=== PATIENT | female | born 1955 | race African-American/Black ===

== ENCOUNTER 2022-08-14 13:57 | Inpatient (IN) | payer OTHER ==
[~2022-08-14] VITALS: Ht 167.6 cm; Wt 83.0 kg
[2022-08-14] MEDS ORDERED: SODIUM CHLORIDE 0.9% 1,000 ML IV ONE (14:15)
[2022-08-14 15:25] LABS: BG CARBOXYHEMOGLOBIN 0.7 % (0.5-1.5); BG DEOXYHEMOGLOBIN 6.7 % (0.0-5.0); BG FRACTION INSPIRED OXYGEN 21; BG HCO3 ACT 19.9 mmol/L (22.0-26.0); BG METHEMOGLOBIN 0.3 % (0.0-1.5); BG OXYGEN SATURATION 93.2 % (92.0-98.5); BG OXYHEMOGLOBIN 92.3 % (94.0-97.0); BG PCO2 27.3 mmHg (35.0-45.0); BG PH 7.481 (7.350-7.450); BG PO2 63.3 mmHg (75.0-100.0); BG SAMPLE SITE RIGHT RADIAL; BG TOTAL HEMOGLOBIN 14.7 g/dL (12.0-18.0); BG VENT MODE ROOM AIR
[2022-08-14 16:42] LABS: CHLORIDE 103 mEq/L (98-107); HEMATOCRIT. 41.5 % (36.0-48.0); HEMOGLOBIN. 13.8 g/dL (12.0-16.0); MEAN CORPUSCULAR HEMOGLOBIN 28.7 pg (28.0-32.0); MEAN CORPUSCULAR VOLUME 86.6 fL (81.0-99.0); MEAN PLATELET VOLUME 9.5 fl (7.4-10.4); PLATELET 64 x1000/uL (130-400); RED BLOOD CELL COUNT 4.79 mill/uL (4.2-5.4); RED CELL DISTRIBUTION WIDTH 14.5 % (11.6-14.6)
[2022-08-14 16:46] LABS: INR 1.4; PROTHROMBIN TIME 14.6 sec (9.6-11.0)
[2022-08-14 16:57] LABS: CREATINE KINASE 204 IU/L (26-192); ETHANOL BLOOD < 10 mg/dL (-10)
[2022-08-14 17:24] LABS: PLATELET ESTIMATE DECREASED
[2022-08-14] MEDS ORDERED: IOHEXOL-350 100 ML BOTTLE ONE (21:46)
[2022-08-14] MEDS ORDERED: HEPARIN 25,000 UNITS PREMIX 250 ML IV ONE (22:00)
[2022-08-14] MEDS ORDERED: HEPARIN 60 UNITS/KG BOLUS IV SCH (22:00)
[2022-08-14] MEDS ORDERED: HEPARIN 25,000 UNITS PREMIX 250 ML IV SCH (23:15)
[2022-08-15] VITALS (46 sets, daily range): BP systolic 73–201; BP diastolic 34–136
[2022-08-15] MEDS ORDERED: SODIUM CHLORIDE 0.9% 100 ML IV SCH (04:15)
[2022-08-15] MEDS: SODIUM CHLORIDE 0.9% 1,000 ML IV SCH ×2 (04:29→14:08)
[2022-08-15 04:44] LABS: HEMATOCRIT. 39.2 % (36.0-48.0); HEMOGLOBIN. 12.9 g/dL (12.0-16.0); MEAN CORPUSCULAR HEMOGLOBIN 28.8 pg (28.0-32.0); MEAN CORPUSCULAR VOLUME 87.2 fL (81.0-99.0); MEAN PLATELET VOLUME 9.7 fl (7.4-10.4); PLATELET 53 x1000/uL (130-400); RED BLOOD CELL COUNT 4.49 mill/uL (4.2-5.4); RED CELL DISTRIBUTION WIDTH 14.8 % (11.6-14.6)
[2022-08-15 04:50] LABS: CHLORIDE 109 mEq/L (98-107)
[2022-08-15] MEDS ORDERED: HEPARIN BOLUS PRN aPTT 30-44 IV (06:00)
[2022-08-15] MEDS ORDERED: HEPARIN BOLUS PRN aPTT <30 IV (06:00)
[2022-08-15] MEDS ORDERED: NICARDIPINE 40MG/200ML PREMIX 200 ML IV PRN (06:30)
[2022-08-15] MEDS ORDERED: NICARDIPINE 50 MG in SODIUM CHLORIDE 0.9% 250 ML IV PRN (07:00)
[2022-08-15] MEDS ORDERED: IPRATROPIUM/ALBUTEROL 0.5-3(2.5)MG/3ML NEB HHN PRN (08:30)
[2022-08-15] MEDS ORDERED: HEPARIN 25,000 UNITS PREMIX 250 ML IV SCH (08:30)
[2022-08-15] MEDS: PANTOPRAZOLE SODIUM 40 MG/VIAL IV SCH (08:50)
[2022-08-15 10:22] LABS: PLATELET ESTIMATE DECREASED
[2022-08-15] MEDS ORDERED: LORAZEPAM 2MG/ML CPJ IV NR (12:45)
[2022-08-15 19:04] LABS: HEMATOCRIT. 36.1 % (36.0-48.0); MEAN CORPUSCULAR HEMOGLOBIN 28.8 pg (28.0-32.0); MEAN CORPUSCULAR VOLUME 87.1 fL (81.0-99.0); MEAN PLATELET VOLUME 9.3 fl (7.4-10.4); RED BLOOD CELL COUNT 4.15 mill/uL (4.2-5.4); RED CELL DISTRIBUTION WIDTH 14.3 % (11.6-14.6)
[2022-08-15 19:27] LABS: PLATELET 39 x1000/uL (130-400)
[2022-08-15 19:49] LABS: PLATELET ESTIMATE MARKEDLY DECREASED
[2022-08-16] VITALS (41 sets, daily range): BP systolic 93–153; BP diastolic 43–93
[2022-08-16 05:30] LABS: HEMATOCRIT. 34.9 % (36.0-48.0); HEMOGLOBIN. 11.5 g/dL (12.0-16.0); MEAN CORPUSCULAR HEMOGLOBIN 28.8 pg (28.0-32.0); MEAN CORPUSCULAR VOLUME 87.4 fL (81.0-99.0); MEAN PLATELET VOLUME 10.6 fl (7.4-10.4); RED CELL DISTRIBUTION WIDTH 14.8 % (11.6-14.6)
[2022-08-16 05:58] LABS: CHLORIDE 112 mEq/L (98-107)
[2022-08-16] MEDS: PANTOPRAZOLE SODIUM 40 MG/VIAL IV SCH (09:00)
[2022-08-16] MEDS ORDERED: POTASSIUM CHLORIDE INJ 40 MEQ in DEXT 5% WATER 250 ML IV ONE (09:15)
[2022-08-16 09:53] LABS: PLATELET 48 x1000/uL (130-400); PLATELET ESTIMATE MARKEDLY DECREASED
[2022-08-16] MEDS: KCL 20MEQ/100ML X 2 FOR TOTAL KCL 40MEQ/200ML IV SCH ×2 (10:00→11:59)
[2022-08-16] MEDS: SODIUM CHLORIDE 0.9% 1,000 ML IV SCH (11:59)
[2022-08-16] MEDS ORDERED: GADOTERATE MEGLUMINE 5 MMOL/10 ML VIAL IV ONE (18:56)
[2022-08-16] MEDS ORDERED: DEXAMETHASONE 4MG TABLET PO SCH (22:00)
[2022-08-16] MEDS ORDERED: LEVETIRACETAM 500MG PREMIX 100 ML IV SCH (22:00)
== END 2022-08-16 22:11 | disposition short-term general hospital (02) | DRG 70 ==
LOC: ER 13:57 → 5EST 22:01 → EDBEDREQ 22:12 → EDBEDREQSVC 22:12 → ENRESERV 22:33 → MICUNO 08-15 02:00
PROVIDERS: ADMIT Internal Medicine; ATTEND Internal Medicine
PROC: 4A00X4Z Measurement of Central Nervous Electrical Activity, External Approach (ICD-10-PCS; principal; 2022-08-16)
DX: G93.41 Metabolic encephalopathy (principal); G93.6 Cerebral edema; I26.02 Saddle embolus of pulmonary artery with acute cor pulmonale; J96.00 Acute respiratory failure, unspecified whether with hypoxia or hypercapnia; C56.9 Malignant neoplasm of unspecified ovary; C78.00 Secondary malignant neoplasm of unspecified lung; C79.31 Secondary malignant neoplasm of brain; D68.59 Other primary thrombophilia; C78.7 Secondary malignant neoplasm of liver and intrahepatic bile duct; G82.20 Paraplegia, unspecified; C50.911 Malignant neoplasm of unspecified site of right female breast; C53.9 Malignant neoplasm of cervix uteri, unspecified; E66.9 Obesity, unspecified; D69.6 Thrombocytopenia, unspecified; Z20.822 Contact with and (suspected) exposure to COVID-19; Z66 Do not resuscitate; E87.6 Hypokalemia; E83.52 Hypercalcemia; I10 Essential (primary) hypertension; Z86.718 Personal history of other venous thrombosis and embolism; Z95.828 Presence of other vascular implants and grafts; Z85.43 Personal history of malignant neoplasm of ovary; Z68.29 Body mass index [BMI] 29.0-29.9, adult; Z86.73 Personal history of transient ischemic attack (TIA), and cerebral infarction without residual deficits
CPT/HCPCS: 36415; 36600; 70553; 71045; 71275; 72156; 80053; 80307; 80320; 80329; 82140; 82375; 82550; 82805; 83735; 83880; 84443; 84484; 85025; 86850; 86900; 87426; 93005; 93306; 93970; 99291; A9577; C9113; C9803; J1644; J1953; J3480; J7030; J8540; Q9967; A4315; G0480